=== PATIENT | male | born 1995 | race Caucasian/White ===

== ENCOUNTER 2024-08-08 20:21 | Emergency (ER) | payer SELFPAY ==
[2024-08-08 20:22] VITALS: BP 133/72
--- NOTE | 2024-08-08 21:02 | ED.GENMED ---
History of Present Illness
General
Chief Complaint: Psychiatric Problem
Source: patient
Time Seen by Provider: 08/08/24 20:50
History of Present Illness
History of Present Illness:
28-year-old male with past medical history of anxiety, bipolar disorder, PTSD presenting to the emergency department for evaluation of racing thoughts, feeling manic and generally unwell. Patient states that he stopped taking his medicine about 1
week ago because it had been making him feel too tired but does state that he took a half dose of some of his medicine today to help calm the racing thoughts. Patient denies any thoughts of suicidal ideation, homicidal ideation and denies any
hallucinations. No physical complaints at this time. Patient is somewhat evasive with questioning about the racing thoughts. Patient does reference his PTSD but does not expound on what exactly he felt triggered his PTSD or what specific symptoms
he was having.
Past History
Past History
ED Past Medical History: Psychiatric
ED Past Surgical History: None
Social History
Tobacco: Non-smoker
Alcohol: None
Drug: None
Personal: Single
Living: with family
Review of Systems
Review of Systems
All Other Systems: ROS reviewed and negative except as documented in HPI and ROS
Phy Exam
Physical Exam
Physical Exam:
GENERAL: Alert , in no apparent distress
EYE: conjunctiva clear
Head: Normocephalic atraumatic
NECK: Supple,
ENT: mmm.
LUNGS: no acute respiratory distress
NEUROLOGICAL: Alert and oriented
SKIN: Warm and dry, skin intact.
MUSCULOSKELETAL: well perfused.
PSYCH: Normal and appropriate interaction.
Scores
Heart Failure Risk
Heart Failure Risk Score: Not Applicable
Heart Score for Chest Pain Patients
STEMI patient?: Not applicable
Withdrawal Assessment of Alcohol
Withdrawal Assessment Completed?: Not applicable
Course
Orders/Labs/Results
Orders:
Orders
08/08/24 21:01
Crisis Consult Urgent
Reason for Consult: racing thoughts, adriana
Vital Signs
Initial and Last Documented VS:
Initial Vital Signs
Temp Pulse Resp BP Pulse Ox
98.5 F 78 19 133/72 99
08/08/24 20:22 08/08/24 20:22 08/08/24 20:22 08/08/24 20:22 08/08/24 20:22
Last Documented Vital Signs
Temp Pulse Resp BP Pulse Ox
98.5 F 78 19 133/72 99
08/08/24 20:22 08/08/24 20:22 08/08/24 20:22 08/08/24 20:22 08/08/24 20:22
MDM/Problems Addressed
MDM/Problems Addressed:
28-year-old male presenting to the emergency department for evaluation of reported exacerbation of his PTSD and feeling as if he is manic. Patient denying any suicidal ideations or homicidal ideations. Hemodynamically stable. No acute distress.
Crisis consult ordered. Disposition pending.
Chronic conditions affecting care: Psychiatric illness
Acute Exacerbation and/or Progression of Chronic Illness: Psychiatric illness
*Pulse Oximetry
Patient hypoxic: no
*Critical Care Note
Total Time (30-74mins, 75-104mins- exclusive of procedures): Not Applicable
Patient Management
Escalation/DeEscalation of care consider admission/obs:
Patient seen by crisis team. Recommending intensive outpatient program. They are providing patient with information. Stable for discharge home and aware of return precautions to the ER.
ED Attending Note
-
Portions of this chart may have been created with voice recognition software.� Occasional wrong word or��sound alike� substitutions may have occurred due to the inherent limitations of voice recognition software.
Discharge Plan
Departure
Patient Disposition: Home (Routine Discharge)
Date of Disposition: 08/08/24
Time of Disposition: 21:50
Patient with high blood pressure during this ER visit?: No
Discharge Problem:
Bipolar disorder
Instructions: Bipolar Disorder (DC)
Referrals:
Kevin Swartz PA [Family Provider] -
Interventions
Interventions:
*Risk Screen - Suicide Last Done: 08/08/24 20:22
*General Assessment Last Done: 08/08/24 22:01
*Neglect/Abuse Screening Last Done: 08/08/24 20:22
ED- Fall Risk Assessment Last Done: 08/08/24 22:01
*ED COVID-19 Vaccine History Last Done: 08/08/24 22:01
*Nursing Disposition Last Done: 08/08/24 22:01
ED-Psychological Assessment Last Done: 08/08/24 21:57
Discharge Date and Time
Discharge Date/Time: 08/08/24 22:03
Print Language: MALTESE
== END 2024-08-08 22:03 | disposition home or self-care (01) ==
LOC: EMR 20:21
PROVIDERS: EMERGENCY PHYSICIAN Student in an Organized Health Care Education/Training Program; FAMILY PHYSICIAN Physician Assistant
DX: F31.9 Bipolar disorder, unspecified (principal); F43.10 Post-traumatic stress disorder, unspecified
CPT/HCPCS: 99283